=== PATIENT | male | born 1965 | race Caucasian/White ===

== ENCOUNTER 2017-09-21 15:18 | Emergency (ER) | payer SELFPAY ==
--- NOTE | 2017-09-21 16:48 | ER Document Report ---
ED Eye Complaint - General Chief Complaint: Eye Pain Stated Complaint: EYE PAIN, DIZZY Time Seen by Provider: 09/21/17 16:46 Mode of Arrival: Ambulatory Information source: Patient Notes: Patient states since yesterday's had some intermittent dizziness and blurry vision. He also states that his eyes have been itchy and burning. The symptoms are bilateral. He has not noticed any fevers or pus. He states he has not taken his high blood pressure medications in approximate 6 months because he does not like the way they make him feel. He also no longer has a primary care physician. No vomiting or diarrhea. No chest pain. No shortness of breath. The symptoms are intermittent. Nothing appears to make them better or worse. There is no radiation of symptoms. TRAVEL OUTSIDE OF THE [place] IN LAST 30 DAYS: No - Related Data Allergies/Adverse Reactions: lidocaine [Lidocaine] Allergy (Verified 09/21/17 15:30) Past Medical History - General Information source: Patient - Social History Smoking Status: Current Every Day Smoker Frequency of alcohol use: Occasional Drug Abuse: Marijuana Family History: Hypertension - Past Medical History Cardiac Medical History: Reports: Hx Hypertension Neurological Medical History: Denies: Hx Migraine Renal/ Medical History: Denies: Hx Peritoneal Dialysis Psychiatric Medical History: Reports: Hx Anxiety Surgical Hx: Negative - Immunizations Hx Diphtheria, Pertussis, Tetanus Vaccination: No Review of Systems - Review of Systems Constitutional: Malaise. denies: Chills, Fever Cardiovascular: denies: Chest pain, Palpitations Respiratory: denies: Cough, Short of breath -: Yes All other systems reviewed and negative Physical Exam - Vital signs Vitals: Temp Pulse BP Pulse Ox 98.2 F 56 L 173/101 H 98 09/21/17 15:30 09/21/17 15:30 09/21/17 15:30 09/21/17 15:30 Interpretation: Hypertensive - General General appearance: Appears well, Alert - HEENT Head: Normocephalic, Atraumatic Eyes: Normal Conjunctiva: Normal Cornea: Normal Extraocular movements intact: Yes Eyelashes: Normal Pupils: PERRL Visual acuity- Right eye: see nn - Respiratory Respiratory status: No respiratory distress Chest status: Nontender Breath sounds: Normal Chest palpation: Normal - Cardiovascular Rhythm: Regular Heart sounds: Normal auscultation Murmur: No - Abdominal Inspection: Normal Distension: No distension Bowel sounds: Normal Tenderness: Nontender Organomegaly: No organomegaly - Back Back: Normal, Nontender - Extremities General upper extremity: Normal inspection, Nontender, Normal color, Normal ROM , Normal temperature General lower extremity: Normal inspection, Nontender, Normal color, Normal ROM , Normal temperature, Normal weight bearing. No: Ranjith's sign - Neurological Neuro grossly intact: Yes Cognition: Normal Orientation: AAOx4 [place] Coma Scale Eye Opening: Spontaneous [place] Coma Scale Verbal: Oriented [place] Coma Scale Motor: Obeys Commands [place] Coma Scale Total: 15 Speech: Normal Motor strength normal: LUE, RUE, LLE, RLE Sensory: Normal - Psychological Associated symptoms: Normal affect, Normal mood - Skin Skin Temperature: Warm Skin Moisture: Dry Skin Color: Normal Course - Vital Signs Vital signs: Temp Pulse Resp BP Pulse Ox 98.2 F 56 L 173/101 H 98 09/21/17 15:30 09/21/17 15:30 09/21/17 15:30 09/21/17 15:30 Discharge - Discharge Clinical Impression: Uncontrolled hypertension Allergic conjunctivitis Qualifiers: Laterality: bilateral Qualified Code(s): H10.13 - Acute atopic conjunctivitis, bilateral Condition: Stable Disposition: HOME, SELF-CARE Instructions: High Blood Pressure, Requiring Treatment ([facility]) Additional Instructions: Your blood pressure is very high. If you do not get your blood pressure under control is going to lead to heart attacks, strokes, kidney failure, vision loss and possibly . Please follow-up with your primary care physician as soon as possible to have your blood pressure rechecked. Please take your medication every day as prescribed. Please call the mill controller as soon as possible to arrange follow-up. Prescriptions: Amlodipine Besylate [Norvasc 5 mg Tablet] 5 mg PO DAILY #30 tablet Naphazoline HCl/Pheniramine [Naphcon-A Eye Drops] 1 drop OU QID 3 Days drops Forms: Elevated Blood Pressure, Return to Work Referrals: AZAEL PATTERSON MD [COMMUNITY BASED STAFF] - Follow up in 1 week DENIS METZ DO [ACTIVE STAFF] - Follow up tomorrow
[2017-09-21 17:26] VITALS: BP 148/83
== END 2017-09-21 17:26 | disposition home or self-care (01) ==
LOC: ER 15:18
DX: H10.13 Acute atopic conjunctivitis, bilateral (principal); I10 Essential (primary) hypertension; T50.906A Underdosing of unspecified drugs, medicaments and biological substances, initial encounter; Z91.128 Patient's intentional underdosing of medication regimen for other reason; Z91.14 Patient's other noncompliance with medication regimen; H53.8 Other visual disturbances; R42 Dizziness and giddiness; R53.81 Other malaise; F17.200 Nicotine dependence, unspecified, uncomplicated; Z88.4 Allergy status to anesthetic agent
CPT/HCPCS: 99283

== ENCOUNTER 2018-07-15 12:09 | Emergency (ER) | payer SELFPAY ==
[2018-07-15] MEDS ORDERED: ASPIRIN 81 MG TABLET, CHEWABLE PO ONE (12:40)
[2018-07-15 13:08] LABS: ABSOLUTE BASOPHILS # (AUTO) 0.1 10^3/uL (0.0-0.2); ABSOLUTE LYMPHOCYTES (AUTO) 1.7 10^3/uL (0.5-4.7); ABSOLUTE MONOCYTES (AUTO) 0.5 10^3/uL (0.1-1.4); ABSOLUTE NEUT (AUTO) 8.6 10^3/uL (1.7-8.2); BASOPHILS % (AUTO) 0.7 % (0-2); EOSINOPHILS % (AUTO) 0.2 % (0-6); HEMATOCRIT 42.6 % (37.9-51.0); HEMOGLOBIN 14.9 g/dL (13.5-17.0); LYMPHOCYTES % (AUTO) 15.8 % (13-45); MEAN CORPUSCULAR VOLUME 86 fl (80-97); MONOCYTES % (AUTO) 4.3 % (3-13); PLATELET COUNT 279 10^3/uL (150-450); RED BLOOD COUNT 4.97 10^6/uL (4.35-5.55); RED CELL DISTRIBUTION WIDTH 12.7 % (11.5-14.0); TOTAL CELLS COUNTED % (AUTO) 100 %; WHITE BLOOD COUNT 10.9 10^3/uL (4.0-10.5)
[2018-07-15 13:11] LABS: ALANINE AMINOTRANSFERASE 29 U/L (21-72); ALBUMIN 4.3 g/dL (3.5-5.0); ALKALINE PHOSPHATASE 79 U/L (38-126); ANION GAP 14 (5-19); ASPARTATE AMINO TRANSFERASE 22 U/L (17-59); BILIRUBIN,DIRECT 0.4 mg/dL (0.0-0.4); BLOOD UREA NITROGEN 18 mg/dL (7-20); CALCIUM 9.2 mg/dL (8.4-10.2); CARBON DIOXIDE 27 mmol/L (22-30); CHLORIDE 102 mmol/L (98-107); CREATINE KINASE 93 U/L (55-170); GLUCOSE 248 mg/dL (75-110); POTASSIUM 3.7 mmol/L (3.6-5.0); SODIUM 142.9 mmol/L (137-145); TOTAL PROTEIN 7.6 g/dL (6.3-8.2)
[2018-07-15 13:23] LABS: CREATINE KINASE MB 0.72 ng/mL (<4.55)
[2018-07-15 13:24] LABS: TROPONIN I < 0.012 ng/mL
[2018-07-15] MEDS ORDERED: ONDANSETRON 4 MG TAB.RAPDIS PO ONE (13:35)
--- NOTE | 2018-07-15 13:37 | RADIOLOGY REPORT (SQ) ---
EXAM DESCRIPTION: CT HEAD WITHOUT COMPLETED DATE/TIME: 07/15/2018 1:05 pm REASON FOR STUDY: hypertension, headache COMPARISON: None. TECHNIQUE: Axial images acquired through the brain without intravenous contrast. Images reviewed wi th bone, brain and subdural windows. Images stored on PACS. All CT scanners at this facility use dose modulation, iterative reconstruction, and/or weight based d osing when appropriate to reduce radiation dose to as low as reasonably achievable (ALARA). [facility]: Dose Right [facility]: CareDose [facility]: Dose Right [facility]: Teradose 4D [facility]: The [employer] RADIATION DOSE: CT Rad equipment meets quality standard of care and radiation dose reduction techniq ues were employed. CTDIvol: 53.2 mGy. DLP: 1044 mGy-cm. mGy. LIMITATIONS: None. FINDINGS: VENTRICLES: Normal. CEREBRUM: No masses. No hemorrhage. No midline shift. Areas of low density in the white matter mos t likely due to chronic micro-vascular ischemic change. No evidence for acute infarction. CEREBELLUM: No masses. No hemorrhage. No alteration of density. No evidence for acute infarction. EXTRAAXIAL SPACES: Mild age-related involutional change. No fluid collections. No masses. ORBITS AND GLOBE: No intra- or extraconal masses. Normal contour of globe without masses. CALVARIUM: No fracture. PARANASAL SINUSES: No fluid or mucosal thickening. SOFT TISSUES: No mass or hematoma. OTHER: No other significant finding. IMPRESSION: No acute intracranial findings. EVIDENCE OF ACUTE STROKE: NO. TECHNICAL DOCUMENTATION: JOB ID: [id number] Quality ID # [id number]: Final reports with documentation of one or more dose reduction techniques (e.g., Au tomated exposure control, adjustment of the mA and/or kV according to patient size, use of iterative reconstruction technique) 2010 [employer]- All Rights Reserved Reading location - IP/workstation name: [email or web address]
--- NOTE | 2018-07-15 13:47 | RADIOLOGY REPORT (SQ) ---
EXAM DESCRIPTION: CHEST SINGLE VIEW COMPLETED DATE/TIME: 07/15/2018 1:05 pm REASON FOR STUDY: chestpain COMPARISON: None. EXAM PARAMETERS: NUMBER OF VIEWS: One view. TECHNIQUE: Single frontal radiographic view of the chest acquired. RADIATION DOSE: NA LIMITATIONS: None. FINDINGS: LUNGS AND PLEURA: No opacities, masses or pneumothorax. No pleural effusion. MEDIASTINUM AND HILAR STRUCTURES: No masses. Contour normal. HEART AND VASCULAR STRUCTURES: Heart normal in size. Normal vasculature. BONES: No acute findings. HARDWARE: None in the chest. OTHER: No other significant finding. IMPRESSION: NO ACUTE RADIOGRAPHIC FINDING IN THE CHEST. TECHNICAL DOCUMENTATION: JOB ID: [id number]- All Rights Reserved Reading location - IP/workstation name: [email or web address]
[2018-07-15 16:01] VITALS: BP 203/92
--- NOTE | 2018-07-15 16:26 | ER Document Report ---
ED Blood Pressure Problem - General Chief Complaint: High Blood Pressure Stated Complaint: BLOOD PRESSURE ISSUES Time Seen by Provider: 07/15/18 12:31 TRAVEL OUTSIDE OF THE [place] IN LAST 30 DAYS: No - HPI Patient complains to provider of: High blood pressure, Other - This 53-year-old gentleman presented for evaluation of high blood pressure as well as some blurring of his vision which began today while the police were attempting to serve him with an arrest warrant. He notes that he is a history of hypertension as well as diabetes which is been diagnosed with several months prior because of the loss of insurance and money has been unable to take his medications. He is currently not taking any medications but is supposed to be taking both insulin as well as metoprolol. He denies any other symptoms at this time denies any chest pain does endorse some fatigue shortness of breath no focal numbness or weakness. He has had symptoms like this in the past over last several months but has been unable to obtain help. - Related Data Allergies/Adverse Reactions: lidocaine [Lidocaine] Allergy (Verified 09/21/17 15:30) Past Medical History - General Information source: Patient - Social History Smoking Status: Current Every Day Smoker Frequency of alcohol use: None Drug Abuse: None Family History: Hypertension Patient has suicidal ideation: No Patient has homicidal ideation: No - Past Medical History Cardiac Medical History: Reports: Hx Hypertension Neurological Medical History: Denies: Hx Migraine Renal/ Medical History: Denies: Hx Peritoneal Dialysis Psychiatric Medical History: Reports: Hx Anxiety - Immunizations Hx Diphtheria, Pertussis, Tetanus Vaccination: No Review of Systems - Review of Systems -: Yes All other systems reviewed and negative Physical Exam - Vital signs Vitals: Pulse Ox 94 07/15/18 12:22 - General General appearance: Appears well In distress: None - HEENT Head: Normocephalic Eyes: Normal Conjunctiva: Normal - Respiratory Respiratory status: No respiratory distress Chest status: Nontender Breath sounds: Normal Chest palpation: Normal - Cardiovascular Rhythm: Regular Heart sounds: Normal auscultation Murmur: No - Abdominal Inspection: Normal Distension: No distension Bowel sounds: Normal Tenderness: Nontender - Back Back: Normal - Extremities General upper extremity: Normal inspection General lower extremity: Normal inspection - Neurological Neuro grossly intact: Yes Cognition: Normal Orientation: AAOx4 - Psychological Associated symptoms: Normal affect Course - Re-evaluation Re-evalutation: 07/15/18 19:49 This 53-year-old man presents for a myriad of symptoms after having arrest warrant served him. He has untreated hypertension as well as hyperglycemia for which she has been evaluated in the past but is been lost to follow-up as a result of financial difficulties. Examination he has no focal neurologic findings, he does not have active chest pain he does have elevated blood pressure and on arrival had been documented as having a systolic blood pressure of 230, he was given labetalol prior to arrival and during this time his blood pressure has improved to the 160 systolic range. We will plan for CT head as well as cardiac evaluation. Patient with an unremarkable cardiac workup at this time, negative troponin unremarkable CBC, BMP is remarkable for hyperglycemia with an elevated blood sugar in the 200s, will administer fluid. Plan for patient undergo recheck. Patient's blood glucose is improving, his neurologic symptoms are improving, he is chest pain-free ambulatory without any other symptoms. Given that he is continued to be well appearing and is otherwise symptom-free will plan for treatment with his home prescription of labetalol. We will plan for this patient to undergo follow-up with his primary physician. He is in agreement with this plan, I did express concern and offered further evaluation of his medical problems he declined at this time. - Vital Signs Vital signs: Temp Pulse Resp BP Pulse Ox 26 H 203/92 H 97 07/15/18 16:02 07/15/18 15:47 07/15/18 16:02 - Laboratory Result Diagrams: 07/15/18 12:13 07/15/18 12:13 Laboratory results interpreted by me: 07/15/18 07/15/18 12:13 12:13 WBC 10.9 H Seg Neutrophils % 79.0 H Absolute Neutrophils 8.6 H Glucose 248 H Discharge - Discharge Clinical Impression: Hyperglycemia Hypertension Qualifiers: Hypertension type: unspecified Qualified Code(s): I10 - Essential (primary) hypertension Condition: Good Disposition: HOME, SELF-CARE Instructions: Beta Blockers ([facility]), High Blood Pressure ([facility]) Additional Instructions: You were seen in the emergency department for high blood pressure and high blood sugar. You had evaluation including physical exam as well as a CT of her head chest x-ray EKG and blood work. Does not appear that he had an acute event today. You need to follow up with the primary physician in regards to treating her blood pressure. You need to follow-up with the primary physician in regards to treating her high blood sugar. He will be started on a low-dose of a medicine to help with her blood pressure today. If you run out of it you should return for further evaluation. Return for any numbness or weakness worsening symptoms chest pain shortness of breath. Prescriptions: Metoprolol Succinate 50 mg PO DAILY #20 tab.er.24h Forms: Elevated Blood Pressure, Smoking Cessation Education
--- NOTE | 2018-07-15 18:44 | EKG REPORT ---
SEVERITY:- NORMAL ECG - SINUS RHYTHM : Confirmed by: Chris Marvin MD 15-Jul-2018 18:43:20
== END 2018-07-15 16:37 | disposition home or self-care (01) ==
LOC: ER 12:09
DX: I10 Essential (primary) hypertension (principal); T44.7X6A Underdosing of beta-adrenoreceptor antagonists, initial encounter; E11.65 Type 2 diabetes mellitus with hyperglycemia; T38.3X6A Underdosing of insulin and oral hypoglycemic [antidiabetic] drugs, initial encounter; Z91.120 Patient's intentional underdosing of medication regimen due to financial hardship; Z91.14 Patient's other noncompliance with medication regimen; F17.200 Nicotine dependence, unspecified, uncomplicated; H53.8 Other visual disturbances; R53.83 Other fatigue; R06.02 Shortness of breath; Z88.4 Allergy status to anesthetic agent
CPT/HCPCS: 93005; 99285; 36415; 82553; 82550; 85025; 80053; 84484; 71045; 70450; 93010; S0119

== ENCOUNTER → 2020-02-16 | Outpatient (CLI) | payer OTHER ==
[2020-02-16 10:38] LABS: ALBUMIN 4.4 g/dL (3.5-5.0); ALKALINE PHOSPHATASE 101 U/L (38-126); ANION GAP 10 (5-19); ASPARTATE AMINO TRANSFERASE 22 U/L (17-59); BILIRUBIN,DIRECT 0.4 mg/dL (0.0-0.4); BILIRUBIN,TOTAL 0.8 mg/dL (0.2-1.3); BLOOD UREA NITROGEN 14 mg/dL (7-20); CALCIUM 9.3 mg/dL (8.4-10.2); CARBON DIOXIDE 27 mmol/L (22-30); CHLORIDE 100 mmol/L (98-107); CHOLESTEROL 225.11 mg/dL (0-200); GLUCOSE 254 mg/dL (75-110); POTASSIUM 4.1 mmol/L (3.6-5.0); TRIGLYCERIDES 105 mg/dL (<150)
[2020-02-16 10:50] LABS: DIRECT LDL 170 mg/dL (<100)
== END ==
LOC: CCC 09:03
DX: E11.8 Type 2 diabetes mellitus with unspecified complications (principal); I10 Essential (primary) hypertension
CPT/HCPCS: 36415; 80053; 80061; 83036; 84153; 84443